=== PATIENT | female | born 1960 | race African-American/Black ===

== ENCOUNTER 2017-07-17 06:59 | Inpatient (IN) | payer BC ==
[~2017-07-17] VITALS: Ht 177.8 cm; Wt 107.0 kg
[~2017-07-17 06:59] MED LIST: AMLO1TAB39 PO; ASPI-1159 PO; B CO1TAB7 PO; CELE200C PO; CHOL200010 PO; DOCU-267 PO; FERR-43 PO; FURO40TA5 PO; HYDR-4005 PO; MULT-1146 PO; OMEP20TA2 PO; POTA8TAB8 PO; PROP10DR2 BOTHEYE; TRAM50TA3 PO; WELC PO
[2017-07-17] MEDS ORDERED: LACTATED RINGERS 1,000 ML IV SCH (08:45)
[2017-07-17 09:54] LABS: BASOPHILS % 0.7 % (0.0-2.0); EOSINOPHILS % 3.4 % (0.0-5.0); HEMATOCRIT. 37.9 % (36.0-48.0); HEMOGLOBIN. 12.4 g/dL (12.0-16.0); LYMPHOCYTES % 38.5 % (20.0-50.0); MEAN CORPUSCULAR HEMOGLOBIN 24.6 pg (28.0-32.0); MEAN CORPUSCULAR VOLUME 75.3 fL (81.0-99.0); MEAN PLATELET VOLUME 8.8 fl (7.4-10.4); MONOCYTES % 6.4 % (2.0-8.0); PLATELET 320 x1000/uL (130-400); RED BLOOD CELL COUNT 5.04 mill/uL (4.2-5.4); RED CELL DISTRIBUTION WIDTH 16.2 % (11.6-14.6)
[2017-07-17 10:04] LABS: PARTIAL THROMBOPLASTIN TIME 26.8 sec (23.4-31.0); PROTHROMBIN TIME 10.8 sec (9.4-11.6)
[2017-07-17 10:11] LABS: CLARITY URINE CLEAR (CLEAR); COLOR URINE YELLOW (YELLOW); GLUCOSE URINE NEGATIVE (NEGATIVE); KETONES URINE NEGATIVE (NEGATIVE); LEUKOCYTE ESTERASE URINE NEGATIVE (NEGATIVE); NITRITE URINE NEGATIVE (NEGATIVE); OCCULT BLOOD URINE NEGATIVE (NEGATIVE); PH URINE 6.5 (4.5-8.0); PROTEIN URINE NEGATIVE (NEGATIVE); SPECIFIC GRAVITY URINE 1.023 (1.005-1.030); UROBILINOGEN URINE 0.2 E.U./dL (0.2-1.0)
[2017-07-17 10:12] LABS: CARBON DIOXIDE 27 mEq/L (21-32); CHLORIDE 106 mEq/L (98-107)
[2017-07-17] MEDS ORDERED: MORPHINE SULFATE/PF 1MG/ML 10ML AMP ONE (10:56)
[2017-07-17] MEDS ORDERED: EPINEPHRINE 1:1000 1 MG/ML AMP ONE (10:57)
[2017-07-17] MEDS ORDERED: BUPIVACAINE/EPINEPH/PF 0.25%/0.0005 10ML ONE (10:58)
[2017-07-17] MEDS ORDERED: NORMAL SALINE 0.9% 10 ML SYR ONE (10:58)
[2017-07-17] MEDS ORDERED: BACITRACIN 50,000 UNITS/VIAL ONE (10:58)
[2017-07-17] MEDS ORDERED: CEFAZOLIN SODIUM 1000MG/VIAL ONE ×2 (11:36→12:18)
[2017-07-17] MEDS ORDERED: DEXAMETHASONE 4MG/ML 1ML VIAL ONE ×2 (11:36→12:18)
[2017-07-17] MEDS ORDERED: METOCLOPRAMIDE HCL 10MG/2ML VIAL ONE (12:18)
[2017-07-17] MEDS ORDERED: LABETALOL HCL 5MG/ML VIAL 20ML IV ONE (12:18)
[2017-07-17] MEDS ORDERED: ONDANSETRON HCL 4MG/2ML VIAL ONE (12:18)
[2017-07-17] MEDS ORDERED: HYDROMORPHONE HCL/PF 2MG/ML CPJ IV PRN (12:30)
[2017-07-17] MEDS ORDERED: LABETALOL HCL 20MG/4ML CARPUJECT IV PRN (12:30)
[2017-07-17] MEDS ORDERED: ONDANSETRON HCL 4MG/2ML VIAL IV PRN ×2 (12:30→21:00)
[2017-07-17] MEDS ORDERED: MEPERIDINE HCL/PF 25MG/ML CPJ IV PRN (12:30)
[2017-07-17] MEDS ORDERED: ACETAMINOPHEN 325MG TABLET PO PRN (15:15)
[2017-07-17] MEDS ORDERED: NALOXONE INJ IV PRN (18:15)
[2017-07-17] MEDS ORDERED: DIPHENHYDRAMINE INJ IV PRN (18:15)
[2017-07-17] MEDS ORDERED: ONDANSETRON INJ IV PRN (18:15)
[2017-07-17] MEDS: HYDROMORPHONE PCA 10MG/50ML IV PRN ×2 (19:03→19:05)
[2017-07-17 20:00] VITALS: BP 96/53
[2017-07-17] MEDS ORDERED: HYDROCODONE/ACETAMINOPHEN 10/325MG TABLET PO PRN (21:00)
[2017-07-17] MEDS ORDERED: TRAMADOL 50MG TABLET PO PRN (21:00)
[2017-07-17] MEDS ORDERED: MAGNESIUM HYDROXIDE 400MG/5ML 30ML UDC PO PRN (21:00)
[2017-07-17] MEDS: CEFAZOLIN 2,000 MG in DEXT 5% WATER 100 ML IV SCH (22:44)
[2017-07-18] VITALS (7 sets, daily range): BP systolic 86–120; BP diastolic 45–60
[2017-07-18] MEDS: DEXT 5%/0.45% NACL KCL 20MEQ/L 1,000 ML IV SCH ×2 (02:40→18:02)
[2017-07-18] MEDS: CEFAZOLIN 2,000 MG in DEXT 5% WATER 100 ML IV SCH (06:38)
[2017-07-18 07:06] LABS: BASOPHILS % 0.2 % (0.0-2.0); HEMATOCRIT. 30.6 % (36.0-48.0); HEMOGLOBIN. 9.8 g/dL (12.0-16.0); LYMPHOCYTES % 17.8 % (20.0-50.0); MEAN CORPUSCULAR HEMOGLOBIN 24.3 pg (28.0-32.0); MEAN PLATELET VOLUME 9.1 fl (7.4-10.4); MONOCYTES % 11.1 % (2.0-8.0); NEUTROPHILS % 70.9 % (40.0-76.0); PLATELET 340 x1000/uL (130-400); RED BLOOD CELL COUNT 4.03 mill/uL (4.2-5.4); RED CELL DISTRIBUTION WIDTH 16.4 % (11.6-14.6)
[2017-07-18] MEDS: CELECOXIB 200MG CAPSULE PO SCH ×2 (08:12→16:47)
[2017-07-18] MEDS: DOCUSATE SODIUM 100MG CAPSULE PO SCH ×2 (08:12→16:47)
[2017-07-18] MEDS: FERROUS SULFATE 325MG TABLET PO SCH ×3 (08:12→16:50)
[2017-07-18] MEDS ORDERED: PROPYLENE GLYCOL BOTHEYE SCH (09:15)
[2017-07-18] MEDS ORDERED: PEG BOTHEYE SCH (09:15)
[2017-07-18] MEDS ORDERED: [UNRECOGNIZED DRUG - OTHER] BOTHEYE SCH (09:15)
[2017-07-18] MEDS ORDERED: PROPYLENE GLYCOL/PEG 400 15 ML DROPS BOTHEYE PRN ×2 (09:30)
[2017-07-18] MEDS: OMEPRAZOLE 20MG CAPSULE EXTENDED RELEASE PO SCH (10:36)
[2017-07-18] MEDS: MULTIVITAMINS,THER W-MINERALS TABLET PO SCH (10:36)
[2017-07-18] MEDS: DIPHENHYDRAMINE INJ IV PRN ×2 (10:43→18:02)
[2017-07-18] MEDS: COLESEVELAM HCL 625MG TABLET PO SCH (16:50)
[2017-07-18] MEDS ORDERED: RIVAROXABAN 10 MG TABLET PO SCH (17:00)
[2017-07-18] MEDS ORDERED: FERROUS SULFATE 325MG TABLET PO SCH (17:50)
[2017-07-18] MEDS: HYDROMORPHONE PCA 10MG/50ML IV PRN (21:04)
[2017-07-19] VITALS: BP 105/59
[2017-07-19 04:00] VITALS: BP 114/61
[2017-07-19 06:25] LABS: BASOPHILS % 0.3 % (0.0-2.0); EOSINOPHILS % 1.1 % (0.0-5.0); HEMATOCRIT. 26.6 % (36.0-48.0); HEMOGLOBIN. 8.7 g/dL (12.0-16.0); LYMPHOCYTES % 21.3 % (20.0-50.0); MEAN CORPUSCULAR HEMOGLOBIN 24.9 pg (28.0-32.0); MEAN CORPUSCULAR VOLUME 75.7 fL (81.0-99.0); MONOCYTES % 12.1 % (2.0-8.0); NEUTROPHILS % 65.2 % (40.0-76.0); PLATELET 262 x1000/uL (130-400); RED BLOOD CELL COUNT 3.51 mill/uL (4.2-5.4); RED CELL DISTRIBUTION WIDTH 16.3 % (11.6-14.6)
[2017-07-19 06:34] LABS: CARBON DIOXIDE 28 mEq/L (21-32); CHLORIDE 105 mEq/L (98-107)
[2017-07-19] MEDS: OMEPRAZOLE 20MG CAPSULE EXTENDED RELEASE PO SCH (06:38)
[2017-07-19 08:00] VITALS: BP 122/85
[2017-07-19] MEDS: DOCUSATE SODIUM 100MG CAPSULE PO SCH (08:33)
[2017-07-19] MEDS: FERROUS SULFATE 325MG TABLET PO SCH ×2 (08:33→13:59)
[2017-07-19] MEDS: MULTIVITAMINS,THER W-MINERALS TABLET PO SCH (08:33)
[2017-07-19] MEDS: COLESEVELAM HCL 625MG TABLET PO SCH (08:33)
[2017-07-19] MEDS: CELECOXIB 200MG CAPSULE PO SCH (08:34)
[2017-07-19 08:51] LABS: CLARITY URINE CLOUDY (CLEAR); COLOR URINE YELLOW (YELLOW); GLUCOSE URINE NEGATIVE (NEGATIVE); KETONES URINE NEGATIVE (NEGATIVE); LEUKOCYTE ESTERASE URINE TRACE (NEGATIVE); NITRITE URINE NEGATIVE (NEGATIVE); OCCULT BLOOD URINE 3+ (NEGATIVE); PH URINE 5.5 (4.5-8.0); PROTEIN URINE 1+ (NEGATIVE); UROBILINOGEN URINE 0.2 E.U./dL (0.2-1.0)
[2017-07-19] MEDS ORDERED: MEDICATION NOT ON FORMULARY EA (Omeprazole 20 MG) PO SCH (09:00)
[2017-07-19] MEDS ORDERED: MEDICATION NOT ON FORMULARY EA (Multivitamin (Multi Vitamin Daily) 1 EACH) PO SCH (09:00)
[2017-07-19] MEDS ORDERED: VITAMIN B / W-C 1 TAB PO SCH (09:00)
[2017-07-19] MEDS: HYDROCODONE/ACETAMINOPHEN 10/325MG TABLET PO PRN ×2 (10:33→15:40)
[2017-07-19 12:00] VITALS: BP 132/80
[2017-07-19 15:40] VITALS: BP 114/61
== END 2017-07-19 16:06 | disposition home or self-care (01) | DRG 470 ==
LOC: OR 06:59 → 6EST 16:23
PROVIDERS: ADMIT Orthopaedic Surgery; ATTEND Orthopaedic Surgery
PROC: 0SR904Z Replacement of Right Hip Joint with Ceramic on Polyethylene Synthetic Substitute, Open Approach (ICD-10-PCS; principal; 2017-07-17 11:30)
DX: M16.11 Unilateral primary osteoarthritis, right hip (principal); E66.9 Obesity, unspecified; I10 Essential (primary) hypertension; D64.9 Anemia, unspecified; K21.9 Gastro-esophageal reflux disease without esophagitis; E78.5 Hyperlipidemia, unspecified; G89.29 Other chronic pain; M65.9 Synovitis and tenosynovitis, unspecified; Z96.653 Presence of artificial knee joint, bilateral; Z86.711 Personal history of pulmonary embolism; Z86.718 Personal history of other venous thrombosis and embolism; Z68.33 Body mass index [BMI] 33.0-33.9, adult
CPT/HCPCS: 36415; 71010; 73502; 80048; 81001; 81003; 85025; 85610; 85730; 86850; 86900; 86920; 88304; 88311; 93970; 97116; 97163; 97166; 97530; 97535; A4216; C1776; J0171; J0690; J1100; J1170; J1200; J2274; J2405; J2765; J3490; J7040; J7060; J7120